=== PATIENT | male | born 1940 | race Caucasian/White ===

== ENCOUNTER → 2016-10-13 | Outpatient (CLI) | payer OTHER | LOC: BHFA 15:30 | PROVIDERS: ATTEND Internal Medicine Cardiovascular Disease | DX: I25.10 Atherosclerotic heart disease of native coronary artery without angina pectoris (principal); E78.00 Pure hypercholesterolemia, unspecified; I10 Essential (primary) hypertension; I25.2 Old myocardial infarction ==

== ENCOUNTER → 2017-09-13 | Outpatient (CLI) | payer OTHER | LOC: FIMAGING 15:48 | PROVIDERS: ATTEND Internal Medicine | DX: G45.3 Amaurosis fugax (principal); I10 Essential (primary) hypertension; I25.2 Old myocardial infarction; I65.23 Occlusion and stenosis of bilateral carotid arteries ==

== ENCOUNTER → 2017-09-16 | Outpatient (CLI) | payer OTHER | LOC: BHFA 14:00 | PROVIDERS: ATTEND Internal Medicine Cardiovascular Disease | DX: I25.10 Atherosclerotic heart disease of native coronary artery without angina pectoris (principal); I45.4 Nonspecific intraventricular block ==

== ENCOUNTER → 2017-10-18 | Outpatient (CLI) | payer OTHER | LOC: BHFA 13:00 | PROVIDERS: ATTEND Internal Medicine Cardiovascular Disease | DX: I25.10 Atherosclerotic heart disease of native coronary artery without angina pectoris (principal) | CPT/HCPCS: 78452; 93017; A9500; J2785 ==